=== PATIENT | female | born 1985 | race African-American/Black ===

== ENCOUNTER 2021-09-28 10:44 | Outpatient (CLI) | payer BC | END 2021-09-28 10:45 | disposition home or self-care (01) | LOC: BICRAD 10:44 | PROVIDERS: ATTEND Nurse Practitioner Family | DX: M79.671 Pain in right foot (principal) ==

== ENCOUNTER 2023-07-10 14:40 | Outpatient (CLI) | payer BC | END 2023-07-10 14:41 | disposition home or self-care (01) | LOC: SCSMRI 14:40 | PROVIDERS: ATTEND Family Medicine | DX: M51.16 Intervertebral disc disorders with radiculopathy, lumbar region (principal); M47.816 Spondylosis without myelopathy or radiculopathy, lumbar region; M48.061 Spinal stenosis, lumbar region without neurogenic claudication | CPT/HCPCS: 72148 ==